=== PATIENT | male | born 1940 | race Caucasian/White ===

== ENCOUNTER → 2016-12-16 | Outpatient (CLI) | payer MEDICARE, BC ==
[~2016-12-16] MED LIST: ISOSORBIDE MONO60 MG PO; LIPITOR 40MG TA40 MG PO; LISINOPRIL20 MG PO; LOPID600 MG PO; OMEGA-3 FISH1200 MG PO; OMEPRAZOLE DR20 MG PO; TOPCARE ASPIRIN81 M1 PO; TOPROL XL 50MG50 MG PO
== END ==
LOC: LAB 13:22
DX: C61 Malignant neoplasm of prostate (principal)

== ENCOUNTER → 2017-04-26 | Outpatient (CLI) | payer MEDICARE, BC ==
[2012-01-26 15:17] VITALS: BP 139/58
== END ==
LOC: LAB 08:49
DX: E11.9 Type 2 diabetes mellitus without complications (principal)

== ENCOUNTER → 2017-10-20 | Outpatient (CLI) | payer MEDICARE, BC ==
[2012-01-26 15:17] VITALS: BP 139/58
== END ==
LOC: LAB 14:21
DX: C61 Malignant neoplasm of prostate (principal)

== ENCOUNTER → 2018-05-04 | Outpatient (CLI) | payer MEDICARE, BC ==
[2012-01-26 15:17] VITALS: BP 139/58
[2018-05-04 12:07] LABS: ALBUMIN 4.8 g/dL (3.5-5.0); BUN/CREATININE RATIO 31.2 (6.0-26.0); CALCIUM 9.5 mg/dL (8.4-10.2); POTASSIUM 4.1 mmol/L (3.6-5.0); TOTAL BILIRUBIN 0.4 mg/dL (0.2-1.3); TOTAL PROTEIN 8.7 g/dL (6.3-8.2)
[2018-05-04 12:23] LABS: HEMATOCRIT 45.9 % (42.0-52.0); HEMOGLOBIN 15.3 g/dL (13.5-18.0); MEAN CELL VOLUME 89 fl (78-100); MEAN CORPUSCULAR HEMOGLOBIN 30 pg (27-31); MEAN CORPUSCULAR HGB CONC 33 g/dL (33-37); MEAN PLATELET VOLUME 10.5 fl (7.4-10.4); PLATELET COUNT 361 K/mm3 (130-400); RED BLOOD COUNT 5.15 M/mm3 (4.20-5.60); RED CELL DISTRIBUTION WIDTH 13.4 % (11.5-14.5); WHITE BLOOD COUNT 6.1 K/mm3 (4.8-10.8)
[2018-05-04 13:26] LABS: LYMPHOCYTE 37 % (20-51); MONOCYTE 10 % (3-10); NEUTROPHILS 50 % (42-75)
== END ==
LOC: LAB 11:23
PROVIDERS: Family Medicine
DX: Z00.00 Encounter for general adult medical examination without abnormal findings (principal); E11.9 Type 2 diabetes mellitus without complications

== ENCOUNTER → 2018-11-16 | Outpatient (CLI) | payer MEDICARE, BC ==
[2012-01-26 15:17] VITALS: BP 139/58
== END ==
LOC: LAB 10:39
DX: C61 Malignant neoplasm of prostate (principal)

== ENCOUNTER → 2018-12-10 | Outpatient (CLI) | payer MEDICARE, BC ==
[2012-01-26 15:17] VITALS: BP 139/58
== END ==
LOC: LAB 10:37
DX: L02.91 Cutaneous abscess, unspecified (principal)

== ENCOUNTER → 2019-01-14 | Outpatient (CLI) | payer MEDICARE, BC ==
[2012-01-26 15:17] VITALS: BP 139/58
== END ==
LOC: RAD 13:35
DX: R22.2 Localized swelling, mass and lump, trunk (principal); J94.8 Other specified pleural conditions

== ENCOUNTER → 2019-05-16 | Outpatient (CLI) | payer MEDICARE, BC ==
[2012-01-26 15:17] VITALS: BP 139/58
== END ==
LOC: LAB 09:55
DX: C61 Malignant neoplasm of prostate (principal)

== ENCOUNTER → 2019-05-23 | Outpatient (CLI) | payer MEDICARE, BC ==
[2012-01-26 15:17] VITALS: BP 139/58
== END ==
LOC: LAB 10:36
PROVIDERS: Urology
DX: C61 Malignant neoplasm of prostate (principal)

== ENCOUNTER → 2019-11-13 | Outpatient (CLI) | payer MEDICARE, BC ==
[2012-01-26 15:17] VITALS: BP 139/58
[2019-11-13 11:30] LABS: EOS # 0.1 (0.04-0.40); HEMATOCRIT 45.3 % (42.0-52.0); HEMOGLOBIN 14.7 g/dL (13.5-18.0); LYMPH# 1.5 (1.50-4.00); MEAN CELL VOLUME 89 fl (78-100); MEAN CORPUSCULAR HEMOGLOBIN 29 pg (27-31); MEAN CORPUSCULAR HGB CONC 33 g/dL (33-37); MEAN PLATELET VOLUME 9.3 fl (7.4-10.4); NEU # 6.8 (1.40-6.50); PLATELET COUNT 413 K/mm3 (130-400); RED BLOOD COUNT 5.09 M/mm3 (4.20-5.60); RED CELL DISTRIBUTION WIDTH 13.3 % (11.5-14.5); WHITE BLOOD COUNT 9.5 K/mm3 (4.8-10.8)
[2019-11-13 11:46] LABS: ALBUMIN 4.3 g/dL (3.4-4.8); POTASSIUM 4.2 mmol/L (3.5-5.1)
[2019-11-13 11:48] LABS: TOTAL PROTEIN 7.9 g/dL (6.2-8.1)
[2019-11-13 11:50] LABS: TOTAL BILIRUBIN 0.4 mg/dL (0.2-1.2)
== END ==
LOC: LAB 11:08
PROVIDERS: Family Medicine
DX: Z00.00 Encounter for general adult medical examination without abnormal findings (principal); E11.9 Type 2 diabetes mellitus without complications; C61 Malignant neoplasm of prostate; E78.5 Hyperlipidemia, unspecified

== ENCOUNTER 2020-01-05 12:50 | Outpatient (RCR) | payer MEDICARE, BC ==
[2020-01-04 09:50] VITALS: BP 161/95
[~2020-01-05] VITALS: Ht 175.3 cm; Wt 86.5 kg
[~2020-01-05 12:50] MED LIST changes: +GLUCOPHAGE850 MG PO
[2020-01-05 12:59] VITALS: BP 151/82
== END 2020-01-05 14:05 | disposition home or self-care (01) ==
LOC: AMSURD 12:50
DX: Z51.81 Encounter for therapeutic drug level monitoring (principal); Z79.2 Long term (current) use of antibiotics
CPT/HCPCS: J0696

== ENCOUNTER → 2020-01-20 | Outpatient (CLI) | payer MEDICARE, BC ==
[2020-01-05 12:59] VITALS: BP 151/82
== END ==
LOC: RAD 14:25
DX: M17.0 Bilateral primary osteoarthritis of knee (principal)

== ENCOUNTER 2020-11-21 17:44 | Emergency (ER) | payer MEDICARE, BC ==
[2020-11-21 18:34] LABS: EOS # 0.1 (0.04-0.40); EOS % 0.8 % (0.0-4.0); HEMATOCRIT 43.6 % (42.0-52.0); HEMOGLOBIN 14.5 g/dL (13.5-18.0); MEAN CELL VOLUME 88 fl (78-100); MEAN CORPUSCULAR HEMOGLOBIN 29 pg (27-31); MEAN CORPUSCULAR HGB CONC 33 g/dL (33-37); MEAN PLATELET VOLUME 9.7 fl (7.4-10.4); MONO # 0.7 (0.20-0.80); NEU # 4.7 (1.40-6.50); PLATELET COUNT 395 K/mm3 (130-400); RED BLOOD COUNT 4.98 M/mm3 (4.20-5.60); RED CELL DISTRIBUTION WIDTH 13.8 % (11.5-14.5); WHITE BLOOD COUNT 7.5 K/mm3 (4.8-10.8)
[2020-11-21 18:39] LABS: POTASSIUM 3.9 mmol/L (3.5-5.1)
[2020-11-21 18:40] LABS: ALBUMIN 4.3 g/dL (3.4-4.8); SODIUM 137 mmol/L (136-145)
[2020-11-21 18:41] LABS: CALCIUM 9.5 mg/dL (8.3-10.5)
[2020-11-21 18:43] LABS: GLUCOSE 183 mg/dL (75-110); TOTAL PROTEIN 6.9 g/dL (6.2-8.1)
[2020-11-21 18:44] LABS: CARBON DIOXIDE 26 mmol/L (23-31); TOTAL BILIRUBIN 0.3 mg/dL (0.2-1.2)
[2020-11-21 18:48] LABS: AST-SGOT 13 U/L (5-34)
[2020-11-21 18:50] LABS: ALT/SGPT 19 U/L (0-55)
[2020-11-21 18:57] LABS: TROPONIN-I < 0.03 ng/mL (<0.030)
[2020-11-21 19:27] LABS: PARTIAL THROMBOPLASTIN TIME 22.6 SECONDS (21.0-32.0); PROTHROMBIN TIME 9.7 SECONDS (9.0-12.0)
[2020-11-21 23:10] VITALS: BP 167/86
[2020-11-22] MEDS ORDERED: CLOPIDOGREL PO (14:46)
[2020-11-22] MEDS ORDERED: METOPROLOL SUCC25 M1 PO (14:46)
[2020-11-22] MEDS ORDERED: HEPARIN-D525000 UNIT IV (14:53)
== END 2020-11-21 23:10 | disposition other institution (70) ==
LOC: ED 17:44
PROVIDERS: Family Medicine
DX: I24.9 Acute ischemic heart disease, unspecified (principal); E11.9 Type 2 diabetes mellitus without complications; I10 Essential (primary) hypertension; E78.5 Hyperlipidemia, unspecified; Z87.891 Personal history of nicotine dependence; Z88.2 Allergy status to sulfonamides; Z79.4 Long term (current) use of insulin; Z79.82 Long term (current) use of aspirin
CPT/HCPCS: J1644

== ENCOUNTER 2020-11-21 23:37 | Inpatient (IN) | payer MEDICARE, BC ==
[~2020-11-21] VITALS: Ht 175.3 cm; Wt 77.9 kg
[2020-11-22] VITALS (7 sets, daily range): BP systolic 106–176; BP diastolic 64–82
[2020-11-22 01:13] LABS: URINE APPEARANCE CLEAR; URINE BILIRUBIN NEGATIVE (NEGATIVE); URINE BLOOD NEGATIVE (NEGATIVE); URINE COLOR YELLOW; URINE GLUCOSE NEGATIVE (NEGATIVE); URINE KETONE NEGATIVE (NEGATIVE); URINE LEUKOCYTE ESTERASE NEGATIVE (NEGATIVE); URINE NITRATE NEGATIVE (NEGATIVE); URINE PROTEIN(semi-quant) 1+ mg/dL (NEGATIVE); URINE UROBILINOGEN NORMAL (NORMAL); URINE WBC 0-1 /hpf (0-3)
[2020-11-22 01:14] LABS: URINE MUCUS PRESENT (NOT PRESENT)
--- NOTE | 2020-11-22 07:45 | NUR ---
Pt awake and pleasant. A/O x 4. Denies any chest pain or discomforts presently. States he did have chest pain x 1 last night while awake (1 on 10 scale) and it went away on it's own. Encouraged pt to call when had any pain. Heparin gtt continues at 1000 units/hr per pump. No signs of any bleeding. Denies any SOB. Tele shows RSR w/ PAC's rates 70-80. Call light in reach and bed alarm on. Lungs clear and heart tones S1S2. No peripheral edema.
--- NOTE | 2020-11-22 08:30 | NUR ---
[facility] called and verified that they still have no beds available for the patient at this time and that it probably would be this afternoon at the earliest that a bed came available. This nurse asked pt if he wanted to have dr look at another hospital option and pt verbalized that he would like to keep with [facility] at this time. He verbalized understanding that if he had a change in condition that we may need to look at other options. Family updated.
--- NOTE | 2020-11-22 09:00 | NUR ---
Dr. Martin notified of bed at [facility] still being unavailable. Clarified heparin rate and notified of PTT results. Jass, Pharmacy called to discuss how we are handling heparin gtt rate. Order to keep rate at 1000 units/hr received and order faxed to pharmacy. Verified did not want oxygen used except for chest pain and 02 danile < 92%.
[2020-11-22 09:35] LABS: EOS # 0.1 (0.04-0.40); EOS % 0.6 % (0.0-4.0); HEMATOCRIT 45.1 % (42.0-52.0); HEMOGLOBIN 14.8 g/dL (13.5-18.0); LYMPH# 1.8 (1.50-4.00); MEAN CELL VOLUME 89 fl (78-100); MEAN CORPUSCULAR HEMOGLOBIN 29 pg (27-31); MEAN CORPUSCULAR HGB CONC 33 g/dL (33-37); MEAN PLATELET VOLUME 9.4 fl (7.4-10.4); MONO # 0.6 (0.20-0.80); NEU # 5.3 (1.40-6.50); PLATELET COUNT 409 K/mm3 (130-400); RED BLOOD COUNT 5.08 M/mm3 (4.20-5.60); RED CELL DISTRIBUTION WIDTH 13.8 % (11.5-14.5); WHITE BLOOD COUNT 7.8 K/mm3 (4.8-10.8)
[2020-11-22 09:47] LABS: POTASSIUM 4.1 mmol/L (3.5-5.1); SODIUM 138 mmol/L (136-145)
[2020-11-22 09:48] LABS: CALCIUM 9.5 mg/dL (8.3-10.5)
[2020-11-22 09:49] LABS: GLUCOSE 208 mg/dL (75-110)
[2020-11-22 09:50] LABS: CARBON DIOXIDE 28 mmol/L (23-31)
--- NOTE | 2020-11-22 09:50 | NUR ---
EKG shown to Dr. Martin.
[2020-11-22 10:19] LABS: TROPONIN-I < 0.03 ng/mL (<0.030)
--- NOTE | 2020-11-22 11:00 | NUR ---
Pt stated that he took a short nap and feels great. Denies any pain or discomfort. Discussed not showering today but can sponge off if he desires. Informed pt that we had not heard from [facility] since I last spoke with them. Heparin gtt continues at 1000 units/hr per pump.
--- NOTE | 2020-11-22 12:26 | NUR ---
Tele shows RSR/ST with rates 90's - 100's while pt eating while sitting on side of bed.
--- NOTE | 2020-11-22 13:02 | NUR ---
Report to CATHIE Laws
[2020-11-22] MEDS ORDERED: METOPROLOL SUCC25 M1 PO (14:46)
[2020-11-22] MEDS ORDERED: CLOPIDOGREL PO (14:46)
[2020-11-22] MEDS ORDERED: HEPARIN-D525000 UNIT IV (14:53)
--- NOTE | 2020-11-22 15:33 | NUR ---
Called [facility] and received notice of open bed, dinh Martin with calling Dr. Bella, accepting physician at [facility] room number [phone]. Transfer packet created and family given belongings and update on plan for transfer. Called [facility] to arrange transfer after consenting patient for trnasfer. PT will be transported shortly and will call [facility] for report.
--- NOTE | 2020-11-22 16:00 | NUR ---
Pt left with [facility] at this time. Report called to CATHIE Richards at [facility] who will resume care. [facility] took pt on heparin gtt and report given to them as well. Criteria met.
== END 2020-11-22 16:00 | disposition short-term general hospital (02) | DRG 311 ==
LOC: MED/SURG 23:37
PROVIDERS: ADMIT Family Medicine
DX: I24.9 Acute ischemic heart disease, unspecified (principal); I10 Essential (primary) hypertension; E78.5 Hyperlipidemia, unspecified; E11.9 Type 2 diabetes mellitus without complications; I25.10 Atherosclerotic heart disease of native coronary artery without angina pectoris; N40.0 Benign prostatic hyperplasia without lower urinary tract symptoms; Z20.828 Contact with and (suspected) exposure to other viral communicable diseases; Z87.891 Personal history of nicotine dependence; Z95.5 Presence of coronary angioplasty implant and graft

== ENCOUNTER 2021-01-08 11:00 | Outpatient (RCR) | payer MEDICARE, BC ==
[2020-11-22 15:35] VITALS: BP 122/70
[~2021-01-08 11:00] MED LIST changes: +CLOPIDOGREL PO; +HEPARIN-D525000 UNIT IV; +METOPROLOL SUCC25 M1 PO
== END 2021-04-08 | disposition home or self-care (01) ==
LOC: CARDREHAB
DX: Z48.812 Encounter for surgical aftercare following surgery on the circulatory system (principal); Z95.1 Presence of aortocoronary bypass graft

== ENCOUNTER 2021-05-14 18:00 | Emergency (ER) | payer MEDICARE, BC ==
[2021-05-14 18:29] LABS: BASO # 0.03 (0.02-0.10); EOS # 0.05 (0.04-0.40); EOS % 0.6 % (0.0-4.0); HEMATOCRIT 44.6 % (42.0-52.0); HEMOGLOBIN 14.5 g/dL (13.5-18.0); LYMPH# 1.81 (1.50-4.00); MEAN CELL VOLUME 83 fl (78-100); MEAN CORPUSCULAR HEMOGLOBIN 27 pg (27-31); MEAN CORPUSCULAR HGB CONC 33 g/dL (33-37); MEAN PLATELET VOLUME 9.5 fl (7.4-10.4); NEU # 4.99 (1.40-6.50); PLATELET COUNT 377 K/mm3 (130-400); RED BLOOD COUNT 5.35 M/mm3 (4.20-5.60); RED CELL DISTRIBUTION WIDTH 17.8 % (11.5-14.5); WHITE BLOOD COUNT 7.7 K/mm3 (4.8-10.8)
[2021-05-14 18:30] LABS: POTASSIUM 4.4 mmol/L (3.5-5.1); SODIUM 141 mmol/L (136-145)
[2021-05-14] MEDS ORDERED: ATORVASTATIN CA80 MG PO (18:30)
[2021-05-14 18:31] LABS: CALCIUM 9.8 mg/dL (8.3-10.5)
[2021-05-14] MEDS ORDERED: PANTOPRAZOLE SO40 MG PO (18:31)
[2021-05-14 18:32] LABS: GLUCOSE 127 mg/dL (75-110); TOTAL PROTEIN 7.2 g/dL (6.2-8.1)
[2021-05-14 18:33] LABS: CARBON DIOXIDE 28 mmol/L (23-31)
[2021-05-14 18:34] LABS: TOTAL BILIRUBIN 0.4 mg/dL (0.2-1.2)
[2021-05-14] MEDS ORDERED: ZESTRIL5 M1 PO (18:37)
[2021-05-14 18:38] LABS: AST-SGOT 12 U/L (5-34)
[2021-05-14] MEDS ORDERED: CARVEDILOL6.25 MG PO (18:38)
[2021-05-14 18:39] LABS: ALT/SGPT 13 U/L (0-55)
[2021-05-14 18:50] LABS: TROPONIN-I < 0.03 ng/mL (<0.030)
[2021-05-14 18:57] LABS: ALBUMIN 4.3 g/dL (3.4-4.8)
[2021-05-14] MEDS ORDERED: FAMOTIDINE40 M1 PO (21:12)
[2021-05-14 21:29] VITALS: BP 162/89
== END 2021-05-14 21:29 | disposition home or self-care (01) ==
LOC: ED 18:00
PROVIDERS: Family Medicine
DX: M94.0 Chondrocostal junction syndrome [Tietze] (principal); I25.10 Atherosclerotic heart disease of native coronary artery without angina pectoris; E11.9 Type 2 diabetes mellitus without complications; I10 Essential (primary) hypertension; E78.5 Hyperlipidemia, unspecified; Z79.02 Long term (current) use of antithrombotics/antiplatelets; Z79.82 Long term (current) use of aspirin; Z79.84 Long term (current) use of oral hypoglycemic drugs; Z79.899 Other long term (current) drug therapy

== ENCOUNTER → 2021-07-12 | Outpatient (CLI) | payer MEDICARE, BC ==
[~2021-07-12] MED LIST changes: +ATORVASTATIN CA80 MG PO; +CARVEDILOL6.25 MG PO; +FAMOTIDINE40 M1 PO; +PANTOPRAZOLE SO40 MG PO; +ZESTRIL5 M1 PO
[2021-07-12 10:04] LABS: BASO # 0.03 (0.02-0.10); EOS # 0.12 (0.04-0.40); EOS % 1.7 % (0.0-4.0); HEMATOCRIT 42.8 % (42.0-52.0); HEMOGLOBIN 13.8 g/dL (13.5-18.0); MEAN CELL VOLUME 92 fl (78-100); MEAN CORPUSCULAR HEMOGLOBIN 30 pg (27-31); MEAN CORPUSCULAR HGB CONC 32 g/dL (33-37); MEAN PLATELET VOLUME 9.8 fl (7.4-10.4); MONO # 0.58 (0.20-0.80); NEU # 4.45 (1.40-6.50); PLATELET COUNT 310 K/mm3 (130-400); RED BLOOD COUNT 4.68 M/mm3 (4.20-5.60); RED CELL DISTRIBUTION WIDTH 15.6 % (11.5-14.5)
== END ==
LOC: LAB 09:43
PROVIDERS: Family Medicine
DX: R58 Hemorrhage, not elsewhere classified (principal)

== ENCOUNTER → 2021-12-07 | Outpatient (CLI) | payer MEDICARE, BC ==
[2021-12-07 12:01] LABS: BASO # 0.03 K/mm3 (0.02-0.10); EOS # 0.08 K/mm3 (0.04-0.40); HEMATOCRIT 44.3 % (42.0-52.0); HEMOGLOBIN 14.2 g/dL (13.5-18.0); LYMPH# 1.66 K/mm3 (1.50-4.00); MEAN CELL VOLUME 90 fl (78-100); MEAN CORPUSCULAR HEMOGLOBIN 29 pg (27-31); MEAN CORPUSCULAR HGB CONC 32 g/dL (33-37); MEAN PLATELET VOLUME 9.6 fl (7.4-10.4); MONO # 0.77 K/mm3 (0.20-0.80); NEU # 5.16 K/mm3 (1.40-6.50); PLATELET COUNT 327 K/mm3 (130-400); RED BLOOD COUNT 4.94 M/mm3 (4.20-5.60); WHITE BLOOD COUNT 7.7 K/mm3 (4.8-10.8)
[2021-12-07 12:14] LABS: ALBUMIN 4.3 g/dL (3.4-4.8); POTASSIUM 4.6 mmol/L (3.5-5.1)
[2021-12-07 12:15] LABS: CALCIUM 9.5 mg/dL (8.3-10.5)
[2021-12-07 12:18] LABS: TOTAL BILIRUBIN 0.5 mg/dL (0.2-1.2)
== END ==
LOC: LAB 11:17
PROVIDERS: Family Medicine
DX: Z00.00 Encounter for general adult medical examination without abnormal findings (principal); E11.9 Type 2 diabetes mellitus without complications

== ENCOUNTER 2022-01-28 00:49 | Emergency (ER) | payer MEDICARE, BC ==
[~2022-01-28] VITALS: Ht 175.3 cm; Wt 81.7 kg
[2022-01-28 02:40] LABS: URINE APPEARANCE HAZY; URINE BILIRUBIN NEGATIVE (NEGATIVE); URINE COLOR YELLOW; URINE GLUCOSE NEGATIVE (NEGATIVE); URINE KETONE NEGATIVE (NEGATIVE); URINE PROTEIN(semi-quant) 1+ (NEGATIVE); URINE UROBILINOGEN NORMAL (NORMAL)
[2022-01-28 02:41] LABS: URINE BLOOD 250 ery/uL (NEGATIVE); URINE LEUKOCYTE ESTERASE NEGATIVE (NEGATIVE); URINE NITRATE NEGATIVE (NEGATIVE); URINE WBC 0-1 /hpf (0-3)
[2022-01-28 02:42] LABS: URINE MUCUS PRESENT (NOT PRESENT)
[2022-01-28] MEDS ORDERED: COLACE100 M1 PO (03:32)
[2022-01-28] MEDS ORDERED: GOOD NEIGH1200 MG/15 PO (03:32)
[2022-01-28 03:36] VITALS: BP 168/89
== END 2022-01-28 03:36 | disposition home or self-care (01) ==
LOC: ED 00:49
PROVIDERS: Family Medicine
DX: K59.00 Constipation, unspecified (principal); Z98.890 Other specified postprocedural states

== ENCOUNTER → 2022-03-09 | Outpatient (CLI) | payer MEDICARE, BC ==
[~2022-03-09] MED LIST changes: +COLACE100 M1 PO; +GOOD NEIGH1200 MG/15 PO
== END ==
LOC: RAD 14:08
DX: K37 Unspecified appendicitis (principal); K22.9 Disease of esophagus, unspecified; K57.92 Diverticulitis of intestine, part unspecified, without perforation or abscess without bleeding

== ENCOUNTER → 2022-08-25 | Outpatient (CLI) | payer MEDICARE, BC | LOC: LAB 11:33 | DX: C61 Malignant neoplasm of prostate (principal); I10 Essential (primary) hypertension; J44.9 Chronic obstructive pulmonary disease, unspecified; I25.10 Atherosclerotic heart disease of native coronary artery without angina pectoris; K21.9 Gastro-esophageal reflux disease without esophagitis; E78.5 Hyperlipidemia, unspecified; M19.90 Unspecified osteoarthritis, unspecified site; I73.00 Raynaud's syndrome without gangrene; E11.9 Type 2 diabetes mellitus without complications; M51.17 Intervertebral disc disorders with radiculopathy, lumbosacral region ==

== ENCOUNTER → 2022-12-20 | Outpatient (CLI) | payer MEDICARE, BC ==
[~2022-12-20] MED LIST changes: +ALBUTEROL2.5 MG/3 M IH; +GABAPENTIN100 MG PO; +METFOMIN HYDRO850 MG PO; +TAMIFLU 75MG75 MG PO; +VIT D PO
[2022-12-20 15:30] LABS: BASO # 0.03 K/mm3 (0.02-0.10); EOS # 0.11 K/mm3 (0.04-0.40); EOS % 1.3 % (0.0-4.0); HEMATOCRIT 44.4 % (42.0-52.0); HEMOGLOBIN 14.5 g/dL (13.5-18.0); LYMPH# 1.54 K/mm3 (1.50-4.00); MEAN CELL VOLUME 92 fl (78-100); MEAN CORPUSCULAR HEMOGLOBIN 30 pg (27-31); MEAN CORPUSCULAR HGB CONC 33 g/dL (33-37); MEAN PLATELET VOLUME 10.1 fl (7.4-10.4); MONO # 0.87 K/mm3 (0.20-0.80); PLATELET COUNT 348 K/mm3 (130-400); RED BLOOD COUNT 4.84 M/mm3 (4.20-5.60); RED CELL DISTRIBUTION WIDTH 14.4 % (11.5-14.5); WHITE BLOOD COUNT 8.6 K/mm3 (4.8-10.8)
[2022-12-20 15:38] LABS: ALBUMIN 4.5 g/dL (3.4-4.8); POTASSIUM 4.4 mmol/L (3.5-5.1)
[2022-12-20 15:39] LABS: CALCIUM 10.1 mg/dL (8.3-10.5)
[2022-12-20 15:41] LABS: TOTAL PROTEIN 7.5 g/dL (6.2-8.1)
[2022-12-20 15:42] LABS: TOTAL BILIRUBIN 0.4 mg/dL (0.2-1.2)
== END ==
LOC: LAB 14:46
PROVIDERS: Family Medicine
DX: Z00.00 Encounter for general adult medical examination without abnormal findings (principal); Z12.5 Encounter for screening for malignant neoplasm of prostate; I73.00 Raynaud's syndrome without gangrene; I48.91 Unspecified atrial fibrillation; I10 Essential (primary) hypertension; I25.10 Atherosclerotic heart disease of native coronary artery without angina pectoris; E78.5 Hyperlipidemia, unspecified; K21.9 Gastro-esophageal reflux disease without esophagitis; M19.90 Unspecified osteoarthritis, unspecified site

== ENCOUNTER → 2023-08-11 | Outpatient (CLI) | payer MEDICARE, BC ==
[~2023-08-11] MED LIST changes: +ELIQUIS5 MG PO; +MECLIZINE PO; +SOTALOL HCL120 MG PO
== END ==
LOC: LAB 12:30
DX: C61 Malignant neoplasm of prostate (principal)

== ENCOUNTER → 2024-02-09 | Outpatient (CLI) | payer MEDICARE, BC | LOC: LAB 10:34 | DX: C61 Malignant neoplasm of prostate (principal) ==

== ENCOUNTER → 2025-01-15 | Outpatient (CLI) | payer MEDICARE, BC ==
[2025-01-15 12:19] LABS: BASO # 0.01 K/mm3 (0.02-0.10); EOS # 0.14 K/mm3 (0.04-0.40); EOS % 1.4 % (0.0-4.0); HEMATOCRIT 43.9 % (42.0-52.0); HEMOGLOBIN 14.4 g/dL (13.5-18.0); LYMPH# 2.09 K/mm3 (1.50-4.00); MEAN CELL VOLUME 90 fl (78-100); MEAN CORPUSCULAR HEMOGLOBIN 29 pg (27-31); MEAN CORPUSCULAR HGB CONC 33 g/dL (33-37); MEAN PLATELET VOLUME 9.9 fl (7.4-10.4); NEU # 6.44 K/mm3 (1.40-6.50); PLATELET COUNT 365 K/mm3 (130-400); WHITE BLOOD COUNT 9.7 K/mm3 (4.8-10.8)
[2025-01-15 12:27] LABS: ALBUMIN 4.5 g/dL (3.4-4.8)
[2025-01-15 12:28] LABS: CALCIUM 9.6 mg/dL (8.3-10.5)
[2025-01-15 12:29] LABS: TOTAL PROTEIN 7.7 g/dL (6.2-8.1)
[2025-01-15 12:30] LABS: PH-URINE 5.5 (5.0 - 8.0); URINE APPEARANCE CLEAR (CLEAR); URINE BILIRUBIN 1+ (NEGATIVE); URINE BLOOD NEGATIVE (NEGATIVE); URINE COLOR YELLOW (YELLOW); URINE GLUCOSE 1+ (NEGATIVE); URINE KETONE TRACE (NEGATIVE); URINE LEUKOCYTE ESTERASE NEGATIVE (NEGATIVE); URINE MUCUS PRESENT (NOT PRESENT); URINE NITRATE NEGATIVE (NEGATIVE); URINE PROTEIN(semi-quant) 1+ (NEGATIVE); URINE WBC 0-1 /hpf (0-3)
[2025-01-15 12:31] LABS: TOTAL BILIRUBIN 0.5 mg/dL (0.2-1.2)
== END ==
LOC: LAB 11:44
PROVIDERS: Nurse Practitioner
DX: M54.50 Low back pain, unspecified (principal)

== ENCOUNTER 2025-03-05 19:04 | Emergency (ER) | payer MEDICARE, BC ==
[~2025-03-05] VITALS: Ht 177.8 cm; Wt 75.0 kg
[2025-03-05] MEDS ORDERED: Clindamycin 150 MG CAP PO ONE (19:45)
[2025-03-05] MEDS ORDERED: CLINDAMYCIN 300MG PO (19:50)
[2025-03-05 19:55] VITALS: BP 168/90
== END 2025-03-05 20:17 | disposition home or self-care (01) ==
LOC: ED 19:04
DX: L08.9 Local infection of the skin and subcutaneous tissue, unspecified (principal); Z95.5 Presence of coronary angioplasty implant and graft; Z95.818 Presence of other cardiac implants and grafts; Z88.1 Allergy status to other antibiotic agents; Z79.01 Long term (current) use of anticoagulants

== ENCOUNTER 2025-03-10 08:24 | Emergency (ER) | payer MEDICARE, BC ==
[~2025-03-10] VITALS: Ht 175.3 cm; Wt 78.1 kg
[~2025-03-10 08:24] MED LIST changes: +CLINDAMYCIN 300MG PO
[2025-03-10 09:09] VITALS: BP 173/82
== END 2025-03-10 09:10 | disposition home or self-care (01) ==
LOC: ED 08:24
DX: L08.9 Local infection of the skin and subcutaneous tissue, unspecified (principal); Z95.5 Presence of coronary angioplasty implant and graft; Z95.818 Presence of other cardiac implants and grafts; Z79.01 Long term (current) use of anticoagulants; Z88.2 Allergy status to sulfonamides